=== PATIENT | male | born 1985 | race Caucasian/White ===

== ENCOUNTER 2024-11-13 03:25 | Emergency (ER) | payer MEDICAID, OTHER ==
[~2024-11-13] VITALS: Ht 165.1 cm; Wt 74.1 kg
--- NOTE | 2024-11-13 03:31 | ED.PDOC ---
History of Present Illness(SKN HPI Comments PT PRESENTED TO ED FOR PELVIC PAIN X1 DAY. RECENT SBO WITH SURGICALBOWEL REPAIR ON 10/28/2024 DONE @ [facility]. MARIA LUZ REMOVED 11/08/2024. NO DRAINAGE NOTED. CLEAN & DRY INCISION CITE. WELLAPPROXIMATED. Time Seen by MD: 03:28 History of Present Illness: Nurses Notes, Medications, Allergies Allergies: Coded Allergies: No Known Drug Allergy (Verified Allergy, Unknown, 11/13/24) Information Source: Patient Past Medical History PAST MEDICAL HISTORY: Denies Surgical History: Denies all surgeries Family History Family History: Unknown Social History Smoker: Non-Smoker Alcohol: Denies ETOH Use Drugs: Denies Drug Use Constitutional: denies: chills, diaphoresis, fatigue, fever, malaise, sweats, weakness, others EENTM: denies: blurred vision, double vision, ear bleeding, ear discharge, ear drainage, ear pain, ear ringing, eye pain, eye redness, hearing loss, mouth pain, mouth swelling, nasal discharge, nose bleeding, nose congestion, nose pain, photophobia, tearing, throat pain, throat swelling, voice changes, others Respiratory: denies: cough, hemoptysis, orthopnea, SOB at rest, shortness of breath, SOB with excertion, stridor, wheezing, others Cardiovascular: denies: chest pain, dizzy spells, diaphoresis, Dyspnea on exer tion, edema, irregular heart beat, left arm pain, lightheadedness, palpitations, PND, syncope, others Gastrointestinal: denies: abdomen distended, abdominal pain, blood streaked bowels, constipated, diarrhea, dysphagia, difficulty swallowing, hematemesis, melena, nausea, poor appetite, poor fluid intake, rectal bleeding, rectal pain, vomiting, others Genitourinary: denies: burning, dysuria, flank pain, frequency, hematuria, incontinence, penile discharge, penile sore, pain, testicle pain, testicle swelling, urgency, others Neurological: denies: dizziness, fainting, headache, left sided numbness, left sided weakness, numbness, paresthesia, pre-existing deficit, right sided numbness, right sided weakness, seizure, speech problems, tingling, tremors, weakness, others Musculoskeletal: denies: back pain, gout, joint pain, joint swelling, muscle pain, muscle stiffness, neck pain, others Allergic/Immunocompromised: denies: Difficulty Healing, Frequent Infections, Hives, Itching, others Hematologic/Lymphatic: denies: anemia, blood clots, easy bleeding, easy bruising, swollen glands, others Endocrine: denies: excessive hunger, excessive sweating, excessive thirst, excessive urination, flushing, intolerance to cold, intolerance to heat, unexpla ined weight gain, unexplained weight loss, others Psychiatric: denies: anxiety, bipolar disorder, depression, hopeless, panic disorder, schizophrenia, sleepless, suicidal, others Physical Exam General Appearance: No Apparent Distress, Normal HEENT: Pharynx Normal Neck: Full Range of Motion, Non-Tender Respiratory: Lungs Clear, No Respiratory Distress, Normal Breath Sounds Cardiovascular: No Murmur, Normal Peripheral Pulses, Regular Rate/Rhythm Breast Exam: Deferred Gastrointestinal: Non Tender, Soft Genitalia: Deferred Pelvic: Deferred Rectal: Deferred Extremities: Normal capillary refill, Normal inspection, Normal range of motion, Non-tender, No pedal edema Musculoskeletal : Apperance: Normal Neurologic: Alert, adobe layer helper II-XII nml as Tested, No Motor Deficits, Normal Affect, Normal Mood, No Sensory Deficits Cerebellar Function: Normal Reflexes: Normal Skin: Dry, Normal Color, Warm, Wounds (MULTIPLE INFECTED PIMPLES ON FOREHEAD LEFT CHEEK. NO NOTED DRAINAGE SURROUNDING ERYTHEMA WITHOUT STREAKING.) Lymphatic: No Adenopathy Was a procedure done? Was a procedure done?: No Differential Diagnosis (INTG) Differential Diagnosis: Cellulitis, Fracture, Hematoma, Laceration, Puncture Wound Differential Diagnosis: Abscess X-Ray, Labs, Meds, VS Vital Signs Date Time Temp Pulse Resp B/P (MAP) Pulse Ox O2 Delivery O2 Flow Rate FiO2 11/13/24 04:14 98.9 105 20 120/82 (95) 99 98.9 Time of 1ST Reevaluation: 03:31 Reevaluation 1ST: Unchanged Time of 2ND Reevaluation: 05:32 Reevaluation 2ND: Improved Patient Education/Counseling: Diagnosis, Treatment, Prognosis, Need For Follow Up Family Education/Counseling: No Family Present Departure 1 Departure Time of Disposition: 05:32 Impression: Primary Impression: Abscess Disposition: 01 HOME / SELF CARE / HOMELESS Condition: Stable e-Prescriptions Doxycycline Hyclate (Doxycycline Hyclate) 100 Mg Cap 100 MG PO BID for 10 Days, #20 CAP Prov: HENNY CAT 11/13/24 Discharged With: Self Critical Care Note Critical Care Time?: No Stability Stability form required: HENNY Ocampo November 13, 2024 03:31
[2024-11-13] MEDS ORDERED: DOXY100C4 PO (05:34)
[2024-11-13 05:45] VITALS: BP 123/78; TEMP 98.5
[2024-11-13] MEDS: DOXYCYCLINE 100 MG TAB/CAP PO ONE (05:50)
[2024-11-13 05:54] VITALS: PULSE 97; RESP 18; O2SAT 97
== END 2024-11-13 06:19 | disposition home or self-care (01) ==
LOC: ER 03:25
DX: L02.01 Cutaneous abscess of face (principal); R10.2 Pelvic and perineal pain